=== PATIENT | female | born 1955 | race Caucasian/White ===

== ENCOUNTER 2022-05-01 10:40 | Emergency (ER) | payer OTHER, MEDICARE ==
[2022-05-01 13:34] LABS: Bacteria/HPF 3+ HPF (None Seen); Bilirubin Negative (Negative); Blood, Urine Trace (Negative); Clarity Turbid (Clear); Glucose, Urine (Dipstick) Normal (Negative); Ketone, Urine Negative (Negative); Leukocyte 500 Leu/uL (Negative); Nitrite Negative (Negative); Protein, Urine (Dipstick) Negative (Neg-Trace); RBC/HPF 21-50 HPF (0-3); Squamous Epithelial 0-3 HPF (0-3); Urobilinogen Normal mg/dL (Less than 2); WBC/HPF Greater than 50 HPF (0-3); pH, Urine 5.5 (5.0-9.0)
== END 2022-05-01 15:40 | disposition home or self-care (01) ==
LOC: ERS 10:40
DX: S22.060A Wedge compression fracture of T7-T8 vertebra, initial encounter for closed fracture (principal); S13.4XXA Sprain of ligaments of cervical spine, initial encounter; N30.00 Acute cystitis without hematuria; V89.2XXA Person injured in unspecified motor-vehicle accident, traffic, initial encounter
CPT/HCPCS: 71045; 72040; 72125; 72128; 81003; 81015; 87077; 87086; 87186

== ENCOUNTER 2024-03-18 17:16 | Emergency (ER) | payer MEDICARE | END 2024-03-18 18:44 | disposition home or self-care (01) | LOC: ERS 17:16 | DX: H10.9 Unspecified conjunctivitis (principal) | CPT/HCPCS: 99283 ==